=== PATIENT | female | born 1970 | race Caucasian/White ===

== ENCOUNTER 2017-01-30 13:29 | Emergency (ER) | payer OTHER ==
[~2017-01-30] VITALS: Ht 157.5 cm; Wt 57.0 kg
[2017-01-30 13:43] VITALS: Ht 157.5 cm; Wt 57.0 kg
[2017-01-30] MEDS ORDERED: IBUPROFEN 600 MG TAB PO ONE (15:00)
--- NOTE | 2017-01-30 15:43 | RADRPT ---
PROCEDURE: XR Left Hand CLINICAL INDICATION: Pain after fall TECHNIQUE: PA, oblique, and lateral radiographs were submitted. COMPARISON: None FINDINGS: Osseous structures: There is mild deformity to the distal left radius with mild dorsal angulation of the distal articular surface suggestive of sequelae of an old healed fracture. No acute fracture o r osseous destruction is evident. Joint spaces: are well maintained, with no significant spurring, erosion or joint effusion evident. Soft tissues: There is soft tissue swelling about the ulnar styloid. IMPRESSION: 1. Slight deformity to the distal left radial metaphysis suspicious for an old healed fracture. 2. No acute fracture or dislocation is evident. 3. Soft tissue swelling seen about the ulnar styloid. Physician Rosalinda Date Time Electronically viewed and signed by Physician Rosalinda on 01/30/2017 15:43 /
[2017-01-30] MEDS ORDERED: HYDR-906 PO (16:18)
[2017-01-30] MEDS ORDERED: IBUP-1542 PO (16:18)
--- NOTE | 2017-01-30 16:34 | ERD ---
ER Documentation Chief Complaint Date/Time DATE: 01/30/17 TIME: 16:30 Chief Complaint Complains of left hand pain HPI This is a 46-year-old female presents to the ER with left hand pain that started 2 days ago after she fell from the stairs. Patient states that she has a lot of pain located to her thumb. Patient denies any wrist pain. She denies any forearm pain. Patient denies any numbness or tingling of her hands. Patient has not been taking anything for the pain. She has not had any fevers or chills. There is no redness or swelling to the area. ROS 12 point review of systems was done, all negative except per HPI. Medications Home Meds Active Scripts Hydrocodone/Acetaminophen (Carefree 5-325 Tablet) 1 Each Tablet, 1 TAB PO Q6H Y for PAIN, #7 TAB Prov:MORGAN PETERS 01/30/17 Ibuprofen* (Motrin*) 600 Mg Tab, 600 MG PO Q6, #30 TAB Prov:MORGAN PETERS 01/30/17 Allergies Allergies: Coded Allergies: No Known Allergy (Unverified , 01/30/17) PMhx/Soc Medical and Surgical Hx: pt denies Medical Hx, pt denies Surgical Hx Hx Alcohol Use: No Hx Substance Use: No Hx Tobacco Use: No Smoking Status: Never smoker Physical Exam Vitals Vital Signs Date Time Temp Pulse Resp B/P Pulse Ox O2 Delivery O2 Flow Rate FiO2 01/30/17 13:43 98.3 55 20 138/80 98 Physical Exam GENERAL: The patient is well developed and appropriate for usual state of health , in no apparent distress. HEENT: Atraumatic. CHEST: Clear to auscultation bilaterally. There are no rales, wheezes or rhonchi. HEART: Regular rate and rhythm. No murmurs, clicks, rubs or gallops. EXTREMITIES: The left hand is without obvious asymmetry or deformity when compared to the right hand. No swelling, erythema, atrophy. No surface trauma. Normal cascade of fingers. Normal flexion extension of fingers. FDS FDP are intact against resistance. No focal fullness, throbbing pain, swelling of fingertips. Patient is tender to palpation to the first MCP joint. Normal pulses and cap refill. NEURO: Alert and oriented. Results 24 hrs Current Medications Medications (Trade) Dose Ordered Sig/Luis Route PRN Reason Start Time Stop Time Status Last Admin Dose Admin Ibuprofen (Motrin) 600 mg ONCE ONCE PO 01/30/17 15:00 01/30/17 15:01 DC 01/30/17 14:43 [place] [id number] Radiology Main Line: [phone] DIAGNOSTIC IMAGING REPORT Patient: ASMITA ADAN : 1970 Age: 46 Sex: F MR #: [id number] DOS: 01/30/17 0000 Ordering MD: MORGAN PETERS. PA-C Location: [facility] Room/Bed: PROCEDURE: XR Left Hand CLINICAL INDICATION: Pain after fall TECHNIQUE: PA, oblique, and lateral radiographs were submitted. COMPARISON: None FINDINGS: Osseous structures: There is mild deformity to the distal left radius with mild dorsal angulation of the distal articular surface suggestive of sequelae of an old healed fracture. No acute fracture or osseous destruction is evident. Joint spaces: are well maintained, with no significant spurring, erosion or joint effusion evident. Soft tissues: There is soft tissue swelling about the ulnar styloid. IMPRESSION: 1. Slight deformity to the distal left radial metaphysis suspicious for an old healed fracture. 2. No acute fracture or dislocation is evident. 3. Soft tissue swelling seen about the ulnar styloid. Physician Rosalinda Date Time Electronically viewed and signed by Physician Rosalinda on 01/30/2017 15:43 RH/ CC: MORGAN PETERS Procedures/MDM This is a 46-year-old female presents to the ER with left hand pain after she fell downstairs. Patient's x-rays are negative for fracture dislocation. Patient has full range of motion of her fingers and is neurovascularly intact. She is afebrile and well-appearing. Suspicion for flexor tendon injury, vascular injury, compartment syndrome is low. Patient is to follow-up with her primary care doctor within 1-2 days and possibly see an orthopedic doctor if her symptoms do not go away. She is to return to ER sooner if symptoms worsen. My medical decision making shared with the patient she understands and agrees with plan. Departure Diagnosis: Primary Impression: Injury of hand Condition: Stable Patient Instructions: Sprain Hand Additional Instructions: Call your primary care doctor TOMORROW for an appointment during the next 1-2 days.See the doctor sooner or return here if your condition worsens before your appointment time. MORGAN PETERS Jan 30, 2017 16:34
== END 2017-01-30 16:29 | disposition home or self-care (01) ==
LOC: FTE 13:29
DX: S69.92XA Unspecified injury of left wrist, hand and finger(s), initial encounter (principal); W10.9XXA Fall (on) (from) unspecified stairs and steps, initial encounter; Y92.9 Unspecified place or not applicable
CPT/HCPCS: 73130; Z7502; Z7610

== ENCOUNTER 2017-07-27 13:42 | Emergency (ER) | END 2017-07-27 18:57 | disposition left against medical advice (07) ==

== ENCOUNTER 2017-07-29 22:22 | Emergency (ER) | END 2017-07-30 01:56 | disposition left against medical advice (07) ==